=== PATIENT | female | born 2000 | race Two or more races ===

== ENCOUNTER 2018-03-17 03:48 | Emergency (ER) | payer SELFPAY ==
[~2018-03-17] VITALS: Ht 162.6 cm; Wt 70.3 kg
[2018-03-17 05:19] LABS: Urine Bacteria FEW /hpf (None Seen); Urine Blood 2+ /uL (Negative); Urine Mucus FEW (None Seen); Urine Specific Gravity 1.019 (1.001-1.035); Urine WBC 5 /hpf (0 - 5)
[2018-03-17 05:59] VITALS: BP 109/65
== END 2018-03-17 07:35 | disposition home or self-care (01) ==
LOC: ER 03:48
DX: N39.0 Urinary tract infection, site not specified (principal)
CPT/HCPCS: 74018; 81001; 81025